=== PATIENT | female | born 1995 | race Caucasian/White ===

== ENCOUNTER 2017-09-02 04:23 | Emergency (ER) | payer OTHER ==
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
[2017-09-02] MEDS ORDERED: ERYTHROMYCIN OPHTH OINT 1 GM TUBE EACHEYE STA (05:31)
[2017-09-02] MEDS ORDERED: IBUPROFEN 600 MG TABLET PO STA (05:31)
[2017-09-02] MEDS ORDERED: HYDROcod/ACET 5/325 Prepack 6 PO STA (05:33)
[2017-09-02 06:07] VITALS: BP 111/68
== END 2017-09-02 06:06 | disposition home or self-care (01) ==
LOC: ED 04:23
DX: H16.133 Photokeratitis, bilateral (principal); X32.XXXA Exposure to sunlight, initial encounter; Y99.0 Civilian activity done for income or pay
CPT/HCPCS: 99283; A9270; J3490

== ENCOUNTER 2021-06-13 13:21 | Emergency (ER) | payer MEDICAID, OTHER ==
[2021-06-13 13:39] VITALS: BP 121/84
[2021-06-13] MEDS ORDERED: HYDROcod/ACETAM 5/325 MG TABLET PO STA (15:25)
--- NOTE | 2021-06-13 15:26 | ED Physician Documentation ---
History of Present Illness - Stated complaint Stated Complaint: BROKEN STITCHES - Chief complaint Chief Complaint: General - History obtained from History obtained from: Patient - Additonal information Additional information: On the of last month she had excision of hidradenitis suppurativa done by Dr. Rouse at [facility]. Over the last couple of days she thinks her sutures will come apart and there is drainage. No fevers.She was supposed to be on doxycycline perioperatively but it made her vomit so she stopped. Review of Systems Constitutional: reports: Reviewed and negative Eyes: reports: Reviewed and negative Ears: reports: Reviewed and negative Nose: reports: Reviewed and negative PD PAST MEDICAL HISTORY - Past Medical History Cardiovascular: High cholesterol Respiratory: None Endocrine/Autoimmune: None GI: None : None HEENT: None Psych: None, Depression Musculoskeletal: None Derm: None - Past Surgical History Past Surgical History: Yes Ortho: Other - Present Medications Home Medications: Ambulatory Orders Medication Instructions Recorded Confirmed Erythromycin Base [Erythromycin 1 film OP QID #1 oint...g. 09/02/17 Ophthalmic Ointment] Hydrocodone/Acetaminophen 1 each PO Q6HR PRN #14 tablet 09/02/17 [Hydrocodone-Acetamin 5-325 mg] Amox/Clav 875/125 [Augmentin] 1 each PO Q12H #20 tablet 06/13/21 HYDROcod/ACETAM 5/325 [[place] 5/325] 1 - 2 tab PO Q6H PRN #10 tablet 06/13/21 - Allergies Allergies/Adverse Reactions: Allergies Allergy/AdvReac Type Severity Reaction Status Date / Time No Known Drug Allergies Allergy Verified 06/13/21 13:39 - Social History Does the pt smoke?: No Smoking Status: Former smoker Does the pt drink ETOH?: Yes Does the pt have substance abuse?: No - Immunizations Immunizations: TDAP current <10years - POLST Patient has POLST: No PD ED PE NORMAL - Vitals Vital signs reviewed: Yes - General General: Alert and oriented X 3, No acute distress - HEENT HEENT: PERRL, EOMI - Extremities Extremities: Other (Suture lines in the inferior parts of both buttocks examined with the RN at bedside. On the right side there is dehiscence of a running suture with a purulent base.) - Neuro Neuro: Alert and oriented X 3, Normal speech Results - Vitals Vitals: Vital Signs - 24 hr 06/13/21 13:29 Temperature 36.9 C Heart Rate 112 H Respiratory 16 Rate Blood Pressure 121/84 H O2 Saturation 99 Oxygen O2 Source Room air - Labs Labs: Microbiology 06/13/21 15:25 Wound Culture - Preliminary Buttock - Right PD MEDICAL DECISION MAKING - ED course ED course: 25-year-old woman with a dehisced surgical wound with signs of infection. She wanted it sutured but discussed with her that this would actually make her worse. Case was discussed by phone, Dr. Galan on-call for [place] who agrees with Augmentin. Says do not remove sutures in situ, wet to dry dressings in the interim pending follow-up. Departure - Departure Disposition: 01 Home, Self Care Clinical Impression: Dehiscence of closure of skin Qualifiers: Encounter type: initial encounter Qualified Code(s): T81.31XA - Disruption of external operation (surgical) wound, not elsewhere classified, initial encounter Condition: Good Record reviewed to determine appropriate education?: Yes Instructions: Incision Care Prescriptions: Amox/Clav 875/125 [Augmentin] 1 each PO Q12H #20 tablet HYDROcod/ACETAM 5/325 [[place] 5/325] 1 - 2 tab PO Q6H PRN #10 tablet PRN Reason: Pain Comments: Prescription sent electronically to [facility] in [place]. Wet to dry dressings as shown by the nurse. Call your surgeon's office on Tuesday to expedite appointment. Return for new or worsening symptoms. I am prescribing a short course of narcotic pain medication for you. These are potentially dangerous and addictive medications that should be used carefully. These medications may constipate you. Take an [id number] stool softener (docusate) twice daily with plenty of water while taking these medications. If you go 24 hours without a bowel movement, take [id number] miralax, per package instructions. Do not drink or drive while taking these medications. If you received narcotic or sedating medications while in the emergency department, do not drive for 24 hours. Store this medication in a safe, secure place and out of reach of children. It is a violation of federal law to give or sell this medication to another person or to use in a manner other than prescribed. The ED will not refill narcotic prescriptions, including prescriptions lost or stolen. To dispose of unwanted medications: 1. [facility] at [address] in [place] has a medication drop box. They accept prescription medications (in pill form) Tuesday through Tuesday 9:00 a.m. to 5:00 p.m. 2. [facility] accepts prescription medications (in pill form only) for disposal year round. Call for more information. 3. Contact the [facility] for the next [facility] sponsored prescription drug collection event. , [phone], or [phone]; Note that many narcotic pain relievers also contain Tylenol/acetaminophen. Please ensure that your total dose of acetaminophen from all sources does not exceed 3 g (3000 mg) per day.
== END 2021-06-13 16:43 | disposition home or self-care (01) ==
LOC: ED 13:21
DX: T81.31XA Disruption of external operation (surgical) wound, not elsewhere classified, initial encounter (principal); Y83.8 Other surgical procedures as the cause of abnormal reaction of the patient, or of later complication, without mention of misadventure at the time of the procedure; L08.9 Local infection of the skin and subcutaneous tissue, unspecified; Z87.891 Personal history of nicotine dependence
CPT/HCPCS: 87070; 87077; 87181; 87205; 99283; A9270